=== PATIENT | female | born 1990 | race Caucasian/White ===

== ENCOUNTER → 2024-04-28 05:53 | Day surgery (SDC) | payer OTHER, SELFPAY ==
--- NOTE | 2024-04-27 07:06 | HPS.HSE ---
Family Physician
-
Family Physician: NOT KNOW UNKNOWN - PT DOES
Chief Complaint
-
MAB
History of Present Illness
Patient is a 33yo who presents for D&E. She had an US on 04/20 that showed a CRL measuring 7w2d with an absent FHT. CRL was >11mm, consistent with nonviable . Patient was previously counseled on expectant, medical and surgical
management and she desires surgical management with D&E. She has no complaints today.
PMH: denies
Surghx: tonsill/adenoids
Meds: PNV
NKDA
Socialhx: denies tobacco, etoh or illicit drug use
Famhx: denies
Medical History
Past Medical History
Past Medical History: Reports None
Past Surgical History: Reports Tonsilectomy
Social History
Tobacco: Non-smoker
Alcohol: None
Drug: None
Family History
Family History: Not pertinent
Allergies / Home Medications
Allergies reflects when Allergies were last updated in [facility].
Home Medications with original date entered in [facility]
Allergy/Medication List:
NKDA
Meds: PNV
Review of Systems
-
A 12 point ROS was completed and negative except as noted: Yes
Physical Exam
Physical Exam
General: Well Developed, Well Nourished and No Apparent Distress
HEENT: NormoCephalic
Respiratory: Non Labored Respirations
Cardiac: Regular Rhythm
Skin: Warm and Dry
Neuro: Awake, Alert and Oriented
Psych: Calm
Impression/Plan
-
IMPRESSION:
Patient is a 33yo who presents for preop for D&E for missed
PLAN:
- Risks, benefits, and alternatives to D&E discussed including bleeding, infection, damage to surrounding structures, and need for future operations. Patient agreeable to a blood transfusion if needed. Risks of a blood transfusion discussed.
Consents for the procedure were signed. All questions were answered. Patient is scheduled for the procedure on 04/[address] Coon
- Doxycycline 200mg PO ordered for antibiotic prophylaxis prior to the procedure
- Post op expectations and instructions discussed
[2024-04-28] VITALS (7 sets, daily range): BP systolic 115–147; BP diastolic 77–100; BMI 26.0
[2024-04-28] MEDS: VIBRAMYCIN 200 MG PO (10:44)
--- NOTE | 2024-04-28 11:34 | PTCARENOTE ---
Pt vomited approx 100 cc of green emesis shortly after taking Doxycycline PO. Dr. Coon made aware and will order IV dose. Patient reports feeling better at this time.
--- NOTE | 2024-05-11 15:48 | W.IMMPOSTOP ---
Surgical Immed Post Op Note
-
Primary Surgeon: Emily Coon DO
Assisting Surgeon: none
Pre-op Diagnosis: Missed miscarriage
Post-op Diagnosis: same
Procedure Performed: Dilation and evacuation
Anesthesia Type: general LMA
Specimen / Cultures: products of conception
Estimated Blood Loss: 5ml
Complications: none
Operative Findings: Uterus sounded to 8 cm. Products of conception noted upon suction.
Blood Type B pos
Stable to recovery.
Hand written postop note was done day of surgery located in op notes in chart scanned in.
== END ==
LOC: SDS 05:53
PROVIDERS: ATTENDING PHYSICIAN Obstetrics & Gynecology
DX: O02.1 Missed abortion (principal)
CPT/HCPCS: 59820; 88305

== ENCOUNTER 2025-02-21 11:27 | Observation (INO) | payer OTHER, SELFPAY ==
[2025-02-21 11:48] VITALS: BP 146/87; BMI 33.1
[2025-02-21 12:06] LABS: Urine Character Clear (Clear)
[2025-02-21 12:12] LABS: Hematocrit 39.8 % (37.0-47.0); Hemoglobin 13.7 g/dL (12.0-16.0); Mean Corp Hgb Conc. 34.4 g/dL (33.0-37.0); Mean Corpuscular Volume 89.2 fL (81.0-99.0); Platelet Count 192 10^3/uL (130-400); Red Cell Dist. Width 12.3 % (11.5-14.5)
[2025-02-21 12:27] LABS: ALT (SGPT) 18 U/L (0-35); AST (SGOT) 24 U/L (14-36); Albumin 3.8 g/dl (3.5-5.0); Alkaline Phosphatase 144 U/L (38-126); Blood Urea Nitrogen 6 mg/dl (7-17); Calcium 9.5 mg/dl (8.4-10.2); Carbon Dioxide 23 mmol/L (22-30); Chloride 103 mmol/L (98-107); Estimated Creatinine Clearance > 125 ml/min; Glucose 79 mg/dl (70-99); Potassium 3.7 mmol/L (3.5-5.1); Sodium 132 mmol/L (135-145); Total Protein 6.4 g/dl (6.3-8.2); eGFR > 60.00
== END 2025-02-21 13:40 | disposition home or self-care (01) ==
LOC: PNTC-IN 11:27
PROVIDERS: ADMITTING PHYSICIAN Obstetrics & Gynecology; ATTENDING PHYSICIAN Student in an Organized Health Care Education/Training Program
DX: O14.03 Mild to moderate pre-eclampsia, third trimester (principal); Z3A.35 35 weeks gestation of pregnancy
CPT/HCPCS: 80053; 81003; 82570; 84156; 85027; G0378

== ENCOUNTER → 2025-02-28 06:47 | Outpatient (REF) | payer OTHER, SELFPAY | LOC: PNTC 06:47 | PROVIDERS: ATTENDING PHYSICIAN Obstetrics & Gynecology | DX: O14.90 Unspecified pre-eclampsia, unspecified trimester (principal) | CPT/HCPCS: 59025; 76816 ==

== ENCOUNTER 2025-03-01 22:01 | Observation (INO) | payer OTHER, SELFPAY ==
[2025-03-01 22:24] VITALS: BP 138/89; BMI 33.1
[2025-03-01 22:33] LABS: Urine Character Clear (Clear)
[2025-03-01 22:34] LABS: Hematocrit 35.5 % (37.0-47.0); Hemoglobin 12.7 g/dL (12.0-16.0); Mean Corp Hgb Conc. 35.8 g/dL (33.0-37.0); Mean Corpuscular Volume 87.2 fL (81.0-99.0); Platelet Count 196 10^3/uL (130-400); Red Cell Dist. Width 12.3 % (11.5-14.5)
[2025-03-01 22:49] LABS: ALT (SGPT) 16 U/L (0-35); AST (SGOT) 20 U/L (14-36); Albumin 3.5 g/dl (3.5-5.0); Alkaline Phosphatase 142 U/L (38-126); Blood Urea Nitrogen 6 mg/dl (7-17); Calcium 9.2 mg/dl (8.4-10.2); Carbon Dioxide 19 mmol/L (22-30); Chloride 109 mmol/L (98-107); Estimated Creatinine Clearance > 125 ml/min; Glucose 113 mg/dl (70-99); Potassium 3.7 mmol/L (3.5-5.1); Sodium 131 mmol/L (135-145); Total Protein 5.8 g/dl (6.3-8.2); eGFR > 60.00
== END 2025-03-02 00:28 | disposition home or self-care (01) ==
LOC: LDRP 22:01
PROVIDERS: ADMITTING PHYSICIAN Obstetrics & Gynecology; FAMILY PHYSICIAN Physician Assistant Medical
DX: O14.03 Mild to moderate pre-eclampsia, third trimester (principal); Z3A.36 36 weeks gestation of pregnancy
CPT/HCPCS: 36415; 80053; 81003; 82570; 84156; 85027; 86850; 86900; 86901; G0378

== ENCOUNTER → 2025-03-02 16:42 | Outpatient (REF) | payer OTHER, SELFPAY | LOC: PNTC 16:42 | PROVIDERS: ATTENDING PHYSICIAN Obstetrics & Gynecology | DX: O11.9 Pre-existing hypertension with pre-eclampsia, unspecified trimester (principal) | CPT/HCPCS: 59025 ==

== ENCOUNTER 2025-03-07 12:35 | Inpatient (IN) | payer OTHER, SELFPAY ==
[2025-03-07 12:53] VITALS: BP 154/91; BMI 33.1
[2025-03-07 15:00] LABS: Hematocrit 38.6 % (37.0-47.0); Hemoglobin 13.5 g/dL (12.0-16.0); Mean Corp Hgb Conc. 35.0 g/dL (33.0-37.0); Mean Corpuscular Volume 88.3 fL (81.0-99.0); Nucleated Red Blood Cells % 0 %; Platelet Count 204 10^3/uL (130-400); Red Cell Dist. Width 12.4 % (11.5-14.5)
[2025-03-07 15:17] LABS: Urine Character Clear (Clear)
[2025-03-07] MEDS: CYTOTEC 25 MICROGRAM VAG (15:18)
[2025-03-07 15:19] LABS: ALT (SGPT) 16 U/L (0-35); AST (SGOT) 22 U/L (14-36); Albumin 4.0 g/dl (3.5-5.0); Alkaline Phosphatase 168 U/L (38-126); Blood Urea Nitrogen 8 mg/dl (7-17); Calcium 9.4 mg/dl (8.4-10.2); Carbon Dioxide 22 mmol/L (22-30); Chloride 106 mmol/L (98-107); Estimated Creatinine Clearance > 125 ml/min; Glucose 64 mg/dl (70-99); Potassium 4.1 mmol/L (3.5-5.1); Sodium 133 mmol/L (135-145); Total Protein 6.3 g/dl (6.3-8.2); eGFR > 60.00
[2025-03-07] MEDS: CYTOTEC PO (15:35)
[2025-03-07] MEDS: CYTOTEC 50 MICROGRAM PO ×2 (19:20→23:13)
[2025-03-08] MEDS: CYTOTEC 50 MICROGRAM PO (03:32)
[2025-03-08] MEDS: PRENATAL PLUS 1 TABLET PO (08:42)
[2025-03-08] MEDS: CYTOTEC PO ×2 (09:11→13:05)
[2025-03-08] MEDS: PENICILLIN 110 UNITS IV (09:14)
[2025-03-08] MEDS: PITOCIN 30 UNITS/NSS 500 ML IV (09:46)
[2025-03-08] MEDS: SUBLIMAZE 100 MCG EPIDURAL (10:57)
[2025-03-08] MEDS: FENTANYL/BUPIVACAINE 100 EPIDURAL ×2 (10:57→18:33)
[2025-03-08] MEDS: LR 1000 IV (13:05)
[2025-03-08] MEDS: PENICILLIN 55 UNITS IV ×2 (13:05→17:56)
[2025-03-08] MEDS: COLACE PO (21:00)
[2025-03-09] MEDS: HYDROCORTISONE 2.5% OINTMENT 1 APPLIC TOPICAL ×2 (02:49→07:50)
[2025-03-09] MEDS: MOTRIN 600 MG PO ×4 (03:33→22:00)
[2025-03-09 04:42] LABS: Hematocrit 36.5 % (37.0-47.0); Hemoglobin 12.7 g/dL (12.0-16.0)
[2025-03-09] MEDS: PRENATAL PLUS 1 TABLET PO (07:40)
[2025-03-09] MEDS: COLACE 100 MG PO ×2 (07:40→20:15)
[2025-03-09] MEDS: TYLENOL 650 MG PO (12:20)
[2025-03-10] MEDS: MOTRIN 600 MG PO ×2 (04:27→10:46)
[2025-03-10] MEDS: PRENATAL PLUS 1 TABLET PO (08:03)
[2025-03-10] MEDS: COLACE 100 MG PO (08:03)
[2025-03-10 15:47] LABS: Syphilis/T. pallidum Ab Reflex Negative (Negative)
== END 2025-03-10 11:25 | disposition home or self-care (01) | DRG 807 ==
LOC: LDRP 12:35
PROVIDERS: Obstetrics & Gynecology; ADMITTING PHYSICIAN Obstetrics & Gynecology; ATTENDING PHYSICIAN Obstetrics & Gynecology
PROC: 3E0P7VZ Introduction of Hormone into Female Reproductive, Via Natural or Artificial Opening (ICD-10-PCS; 2025-03-07)
PROC: 10907ZC Drainage of Amniotic Fluid, Therapeutic from Products of Conception, Via Natural or Artificial Opening (ICD-10-PCS; 2025-03-08)
PROC: 10H07YZ Insertion of Other Device into Products of Conception, Via Natural or Artificial Opening (ICD-10-PCS; 2025-03-08)
PROC: 3E033VJ Introduction of Other Hormone into Peripheral Vein, Percutaneous Approach (ICD-10-PCS; 2025-03-08)
PROC: 10E0XZZ Delivery of Products of Conception, External Approach (ICD-10-PCS; 2025-03-08)
DX: O14.04 Mild to moderate pre-eclampsia, complicating childbirth (principal); Z37.0 Single live birth; Z3A.37 37 weeks gestation of pregnancy; O99.824 Streptococcus B carrier state complicating childbirth; O76 Abnormality in fetal heart rate and rhythm complicating labor and delivery
CPT/HCPCS: 76815; 80053; 81003; 82570; 84156; 85014; 85018; 85025; 86780; 86850; 86900; 86901; 88307